=== PATIENT | female | born 1970 | race Caucasian/White ===

== ENCOUNTER → 2017-09-19 | Outpatient (REF) | payer OTHER | LOC: M LAB REF 12:14 | PROVIDERS: ATTEND Physician Assistant | DX: J02.9 Acute pharyngitis, unspecified (principal) ==

== ENCOUNTER 2017-12-16 06:35 | Day surgery (SDC) | payer OTHER ==
[2017-12-16] MEDS ORDERED: LR 1,000 ML IV ×2 (06:45→09:45)
[2017-12-16] MEDS ORDERED: PROPOFOL 200 MG/20 ML VIAL As Ordered ×3 (07:07→08:48)
[2017-12-16] MEDS ORDERED: LIDOCAINE 2% INJ 100 MG/5 ML SDV (FOR ANES.) As Ordered (07:07)
[2017-12-16] MEDS ORDERED: fentaNYL 250 MCG/5 ML INJECTION (J3010) As Ordered (07:07)
[2017-12-16] MEDS ORDERED: MIDAZOLAM INJ 2 MG/2 ML VIAL (J2250) As Ordered ×2 (07:08→07:26)
[2017-12-16] MEDS: BUPIVACAINE HCL 0.5% 30 ML VIAL As Ordered (07:35)
[2017-12-16] MEDS: LIDOCAINE 2% MDV 20 ML VIAL As Ordered (07:35)
[2017-12-16] MEDS ORDERED: ONDANSETRON 4MG/2ML VIAL (J2405) As Ordered (07:39)
[2017-12-16] MEDS ORDERED: dexameTHASONE 4 MG/ML 1ML VIAL (J1100) As Ordered (07:39)
[2017-12-16] MEDS ORDERED: KETOROLAC 60 MG/2 ML VIAL (J1885) As Ordered (07:39)
[2017-12-16] MEDS ORDERED: METOCLOPRAMIDE INJ 10MG/2ML VIAL (J2765) As Ordered (08:18)
[2017-12-16] MEDS: dexameTHASONE 4 MG/ML 1ML VIAL (J1100) As Ordered (08:26)
[2017-12-16] MEDS: BACITRACIN PWD 50,000 UNITS VIAL As Ordered (08:26)
[2017-12-16] MEDS: NEOSPORIN GU IRRIG 20 ML VIAL As Ordered (08:27)
[2017-12-16] MEDS ORDERED: ONDANSETRON 4MG/2ML VIAL (J2405) IV (09:45)
[2017-12-16] MEDS ORDERED: fentaNYL 100 MCG/2 ML INJECTION (J3010) IV (09:45)
[2017-12-16] MEDS ORDERED: PERCOCET 5MG/325MG TAB PO (09:45)
== END 2017-12-16 11:45 | disposition home or self-care (01) ==
LOC: M SDC 06:35
DX: M20.11 Hallux valgus (acquired), right foot (principal); M20.41 Other hammer toe(s) (acquired), right foot; M21.621 Bunionette of right foot; I10 Essential (primary) hypertension; J30.9 Allergic rhinitis, unspecified; M19.90 Unspecified osteoarthritis, unspecified site; Z91.048 Other nonmedicinal substance allergy status; Z91.040 Latex allergy status; Z79.899 Other long term (current) drug therapy
CPT/HCPCS: 28296

== ENCOUNTER → 2017-12-22 | Outpatient (REF) | payer OTHER ==
[2017-12-22 13:58] LABS: ALBUMIN 4.1 GM/DL (3.2-5.2); ALBUMIN/GLOBULIN RATIO 1.21 (1.00-1.93); ALKALINE PHOSPHATASE 88 U/L (45-117); ALT/SGPT 42 U/L (12-78); ANION GAP 7 MEQ/L (8-16); AST/SGOT 32 U/L (7-37); BILIRUBIN,TOTAL 0.4 MG/DL (0.2-1.0); BLOOD UREA NITROGEN 13 MG/DL (7-18); CALCIUM LEVEL 9.1 MG/DL (8.5-10.1); CARBON DIOXIDE LEVEL 28 MEQ/L (21-32); CHLORIDE LEVEL 105 MEQ/L (98-107); CREATININE FOR GFR 0.63 MG/DL (0.55-1.30); GLOMERULAR FILTRATION RATE > 60.0 (>58); GLUCOSE, FASTING 87 MG/DL (70-100); POTASSIUM SERUM 3.9 MEQ/L (3.5-5.1); RHEUMATOID FACTOR QUANT < 10.0 IU/ML (0-15.0); SODIUM LEVEL 140 MEQ/L (136-145); TOTAL PROTEIN 7.5 GM/DL (6.4-8.2)
[2017-12-22 14:05] LABS: BASO % 0.9 % (0.0-1.0); EOS # 0.1 10^3/uL (0.0-0.50); EOS % 2.9 % (0.0-3.0); HEMATOCRIT 42.5 % (36.0-47.0); HEMOGLOBIN 14.4 g/dl (12.0-16.0); IMMATURE GRANULOCYTE % 0.4 % (0-3.0); LYMPH # 0.9 10^3/uL (1.5-4.5); LYMPH % 20.7 % (24.0-44.0); MEAN CORPUSCULAR HEMOGLOBIN 31.2 pg (27.0-33.0); MEAN CORPUSCULAR HGB CONC 33.9 g/dl (32.0-36.5); MONO # 0.5 10^3/uL (0.0-0.8); MONO % 11.4 % (0.0-5.0); NEUTROPHILS # 2.9 10^3/uL (1.8-7.7); NEUTROPHILS % 63.7 % (36.0-66.0); PLATELET COUNT, AUTOMATED 256 10^3/uL (150-450); RED BLOOD COUNT 4.62 10^6/uL (4.00-5.40); RED CELL DISTRIBUTION WIDTH 12.1 % (11.5-14.5); WHITE BLOOD COUNT 4.5 10^3/uL (4.0-10.0)
[2017-12-22 15:16] LABS: ERYTHROCYTE SEDIMENTATION RATE 21 mm/hr (0-20)
[2017-12-23 14:13] LABS: ANTINUCLEAR ANTIBODIES DIRECT Negative (Negative)
[2017-12-27 10:33] LABS: ALBUMIN % 60.1 % (55.8-66.1); ALPHA-1-GLOBULIN % 3.9 % (2.9-4.9); BETA-1-GLOBULINS % 5.7 % (4.7-7.2)
[2017-12-27 10:34] LABS: ALBUMIN 4.51 GM/DL (3.29-5.55); ALPHA-1-GLOBULINS 0.29 GM/DL (0.17-0.41); ALPHA-2-GLOBULINS 0.75 GM/DL (0.42-0.99); BETA-1-GLOBULINS 0.43 GM/DL (0.28-0.60); BETA-2-GLOBULINS % 5.3 % (3.2-6.5); GAMMA GLOBULINS 1.13 GM/DL (0.65-1.58)
== END ==
LOC: M LABNEURO 09:51
DX: R51 Headache (principal)

== ENCOUNTER → 2018-05-12 | Outpatient (REF) | payer OTHER | LOC: M LAB REF 16:52 | DX: N76.0 Acute vaginitis (principal) ==

== ENCOUNTER → 2018-08-10 | Outpatient (REF) | payer OTHER | LOC: M LAB REF 14:06 | DX: M79.674 Pain in right toe(s) (principal); G62.9 Polyneuropathy, unspecified ==

== ENCOUNTER → 2018-10-02 | Outpatient (REF) | payer OTHER ==
[2018-10-02 19:25] LABS: VITAMIN B12 LEVEL 1424 PG/ML (247-911)
== END ==
LOC: M LAB REF 16:54
DX: D51.9 Vitamin B12 deficiency anemia, unspecified (principal)
CPT/HCPCS: 82607

== ENCOUNTER → 2019-05-10 | Outpatient (CLI) | payer OTHER ==
[~2019-05-10] MED LIST: HYDR12CA PO; POTA10TA67 PO
[2019-05-10 15:51] LABS: HEMOGLOBIN A1c 5.4 %
[2019-05-10 15:55] LABS: FOLATE 12.8 NG/ML; RHEUMATOID FACTOR QUANT < 10.0 IU/ML (<15.0); VITAMIN B12 LEVEL 819 PG/ML
[2019-05-15 09:59] LABS: DRVV SCREEN 40.4 SEC
[2019-05-16 14:07] LABS: ANCA-ATYPICAL <1:20 titer (Neg:<1:20); ANTI DS-DNA AB <1:10 titer (.); ANTINUCLEAR ANTIBODIES DIRECT Negative (Negative); CERULOPLASMIN 21.4 mg/dL (19.0-39.0); COPPER PLASMA 92 ug/dL (72-166); CYTOPLASMIC NEUTROP AB ANCA-C <1:20 titer (Neg:<1:20); LEAD BLOOD ADULT <1 ug/dL (0-4); Lyme Disease IgG/IgM Antibodie <0.91 ISR (0.00-0.90); Lyme Disease IgM Ab Quantitati <0.80 index (0.00-0.79); MERCURY LEVEL None Detected ug/L (0.0-14.9); PERINUCLEAR AB ANCA-P <1:20 titer (Neg:<1:20); SJOGREN'S ANTI SS-A <0.2 AI (0.0-0.9); SJOGREN'S ANTI SS-B <0.2 AI (0.0-0.9); VITAMIN B1 LEVEL WHOLE BLOOD 124.8 nmol/L (66.5-200.0); VITAMIN B6,PYRIDOXAL PHOSPHATE 17.6 ug/L (2.0-32.8); VITAMIN E(ALPHA TOCOPHEROL) 12.6 mg/L (7.0-25.1); VITAMIN E(GAMMA TOCOPHEROL) 1.2 mg/L (0.5-5.5)
== END ==
LOC: M WUC 14:09
PROVIDERS: ATTEND Psychiatry & Neurology Neurology
DX: G62.9 Polyneuropathy, unspecified (principal)

== ENCOUNTER → 2019-10-04 | Outpatient (REF) | payer OTHER | LOC: M LAB REF 14:22 | PROVIDERS: ATTEND Physician Assistant Medical | DX: D51.9 Vitamin B12 deficiency anemia, unspecified (principal) ==

== ENCOUNTER → 2020-08-28 | Outpatient (REF) | payer OTHER | LOC: M LABDRWAD 17:09 | PROVIDERS: ATTEND Psychiatry & Neurology Neurology | DX: R51.9 Headache, unspecified (principal) ==

== ENCOUNTER → 2020-10-02 | Outpatient (REF) | payer OTHER | LOC: M LAB REF 12:27 | PROVIDERS: ATTEND Nurse Practitioner Adult Health | DX: D51.9 Vitamin B12 deficiency anemia, unspecified (principal) ==

== ENCOUNTER → 2021-02-06 | Outpatient (REF) | payer OTHER ==
[2021-02-06 12:55] LABS: EOS # 0.2 10^3/uL (0.0-0.5); HEMATOCRIT 36.4 % (36.0-47.0); HEMOGLOBIN 11.7 g/dl (12.0-15.5); LYMPH % 24.5 % (24.0-44.0); MEAN CORPUSCULAR HEMOGLOBIN 30.5 pg (27.0-33.0); MEAN CORPUSCULAR HGB CONC 32.1 g/dl (32.0-36.5); MONO # 0.5 10^3/uL (0.0-0.8); MONO % 13.4 % (2.0-8.0); NEUTROPHILS # 2.3 10^3/uL (1.5-8.5); NEUTROPHILS % 56.8 % (36.0-66.0); PLATELET COUNT, AUTOMATED 220 10^3/uL (150-450); RED BLOOD COUNT 3.83 10^6/uL (4.00-5.40)
[2021-02-06 13:17] LABS: ERYTHROCYTE SEDIMENTATION RATE 25 mm/hr (0-30)
[2021-02-06 13:37] LABS: ALBUMIN 3.7 GM/DL (3.2-5.2); ALT/SGPT 32 U/L (12-78); BILIRUBIN,TOTAL 0.5 MG/DL (0.2-1.0); BLOOD UREA NITROGEN 22 MG/DL (7-18); CARBON DIOXIDE LEVEL 29 MEQ/L (21-32); CHLORIDE LEVEL 106 MEQ/L (98-107); CREATININE FOR GFR 0.62 MG/DL (0.55-1.30); GLOMERULAR FILTRATION RATE > 60.0 (>51); GLUCOSE, FASTING 80 MG/DL (70-100); POTASSIUM SERUM 3.8 MEQ/L (3.5-5.1); SODIUM LEVEL 140 MEQ/L (136-145)
== END ==
LOC: M LABDRWAD 12:18
PROVIDERS: ATTEND Psychiatry & Neurology Neurology
DX: R51.9 Headache, unspecified (principal)

== ENCOUNTER → 2021-12-07 | Outpatient (REF) | payer OTHER | LOC: M LAB REF 11:25 | PROVIDERS: ATTEND Nurse Practitioner Adult Health | DX: D51.9 Vitamin B12 deficiency anemia, unspecified (principal) ==

== ENCOUNTER → 2022-02-15 | Outpatient (CLI) | payer OTHER ==
[~2022-02-15] MED LIST changes: +COQ-50CA2 PO; +CVS2500C PO; +ESTR10TA; +FERR325T3 PO; +MAGN400C PO; +REST0.05 OU; +ROSU10TA6 PO; +VITA100T39 PO
[2022-02-17 14:10] LABS: HBV HBV DNA not detected IU/mL (.); HEPATITIS B CORE ANTIBODY IGG Negative (Negative); HEPATITIS BE ANTIBODY Negative (Negative); HEPATITIS BE ANTIGEN Negative (Negative)
== END ==
LOC: M PLALAB 10:28
PROVIDERS: ATTEND Internal Medicine Infectious Disease
DX: R76.8 Other specified abnormal immunological findings in serum (principal); Z78.9 Other specified health status

== ENCOUNTER → 2022-03-11 | Outpatient (CLI) | payer OTHER | LOC: M LABSMTC 09:16 | PROVIDERS: ATTEND Anesthesiology | DX: Z01.812 Encounter for preprocedural laboratory examination (principal); Z20.822 Contact with and (suspected) exposure to COVID-19 ==

== ENCOUNTER 2022-03-16 07:29 | Day surgery (SDC) | payer OTHER ==
[~2022-03-16] VITALS: Ht 162.6 cm; Wt 65.3 kg
[~2022-03-16 07:29] MED LIST changes: +NS 1,000 ML IV ONE
[2022-03-16] MEDS ORDERED: propofoL 200 MG/20 ML VIAL As Ordered ONE ×2 (08:43→09:13)
[2022-03-16 09:40] VITALS: BP 139/91
== END 2022-03-16 10:10 | disposition home or self-care (01) ==
LOC: M OPP 07:29
PROVIDERS: ATTEND Internal Medicine Gastroenterology
DX: Z12.11 Encounter for screening for malignant neoplasm of colon (principal); Z80.0 Family history of malignant neoplasm of digestive organs; K63.5 Polyp of colon; K57.30 Diverticulosis of large intestine without perforation or abscess without bleeding; K64.8 Other hemorrhoids; Z79.02 Long term (current) use of antithrombotics/antiplatelets; Z79.899 Other long term (current) drug therapy; Z91.040 Latex allergy status

== ENCOUNTER → 2022-04-21 | Outpatient (REF) | payer OTHER ==
[~2022-04-21] MED LIST changes: -NS 1,000 ML IV ONE
[2022-04-21 15:14] LABS: BASO % 0.7 % (0.0-1.0); EOS # 0.1 10^3/uL (0.0-0.5); EOS % 2.3 % (0.0-3.0); HEMATOCRIT 39.6 % (36.0-47.0); HEMOGLOBIN 13.6 g/dl (12.0-15.5); LYMPH # 1.2 10^3/uL (1.5-5.0); LYMPH % 28.2 % (24.0-44.0); MEAN CORPUSCULAR HGB CONC 34.3 g/dl (32.0-36.5); MEAN CORPUSCULAR VOLUME 93.2 fl (80.0-96.0); MONO # 0.4 10^3/uL (0.0-0.8); MONO % 10.1 % (2.0-8.0); NEUTROPHILS # 2.5 10^3/uL (1.5-8.5); NEUTROPHILS % 58.5 % (36.0-66.0); PLATELET COUNT, AUTOMATED 205 10^3/uL (150-450); RED BLOOD COUNT 4.25 10^6/uL (4.00-5.40); WHITE BLOOD COUNT 4.3 10^3/uL (4.0-10.0)
[2022-04-21 15:51] LABS: ALBUMIN 4.1 GM/DL (3.2-5.2); ALT/SGPT 33 U/L (12-78); BILIRUBIN,DIRECT 0.2 MG/DL (0.0-0.2); BILIRUBIN,TOTAL 0.4 MG/DL (0.2-1.0); IRON (FE) 82 UG/DL (50-170); PERCENT SATURATION 26.7 % (13.2-45.0); TOTAL IRON BINDING CAPACITY 307 UG/DL (250-450); TOTAL PROTEIN 7.4 GM/DL (6.4-8.2)
[2022-04-21 16:02] LABS: HEPATITIS B SURFACE ANTIBODY NEGATIVE (POSITIVE)
[2022-04-21 16:13] LABS: HEPATITIS B SURFACE ANTIGEN NEGATIVE (NEGATIVE)
[2022-04-21 16:42] LABS: HEPATITIS B CORE ANTIBODY IGM NEGATIVE (NEGATIVE)
[2022-04-23 14:08] LABS: HEPATITIS A IgG TOTAL Negative (Negative); HEPATITIS B CORE ANTIBODY IGG Negative (Negative); HEPATITIS BE ANTIBODY Negative (Negative); HEPATITIS BE ANTIGEN Negative (Negative)
== END ==
LOC: M LAB REF 14:38
PROVIDERS: ATTEND Internal Medicine Gastroenterology
DX: E61.1 Iron deficiency (principal)

== ENCOUNTER → 2022-06-25 | Outpatient (CLI) | payer OTHER | LOC: M WUC 08:47 | PROVIDERS: ATTEND Nurse Practitioner Adult Health | DX: M25.551 Pain in right hip (principal) ==

== ENCOUNTER → 2022-09-01 | Outpatient (CLI) | payer OTHER | LOC: M RAD 10:34 | PROVIDERS: ATTEND Nurse Practitioner Adult Health | DX: M25.551 Pain in right hip (principal) ==

== ENCOUNTER → 2023-06-10 | Outpatient (REF) | payer OTHER ==
[~2023-06-10] MED LIST changes: +CO Q50CA7 PO; -COQ-50CA2 PO
[2023-06-10 10:16] LABS: HEMATOCRIT 43.1 % (36.0-47.0)
[2023-06-10 10:41] LABS: PERCENT SATURATION 27.6 % (13.2-45.0)
[2023-06-10 10:43] LABS: FERRITIN 54.4 NG/ML (7.3-270.7)
== END ==
LOC: M LAB REF 09:43
PROVIDERS: ATTEND Nurse Practitioner Adult Health
DX: D51.9 Vitamin B12 deficiency anemia, unspecified (principal)

== ENCOUNTER → 2024-06-12 | Outpatient (REF) | payer OTHER ==
[~2024-06-12] MED LIST changes: -ROSU10TA6 PO; +ROSU10TA61 PO
[2024-06-12 13:59] LABS: HEMATOCRIT 40.5 % (36.0-47.0)
[2024-06-12 14:07] LABS: PERCENT SATURATION 16.5 % (13.2-45.0)
[2024-06-12 14:10] LABS: FERRITIN 20.1 NG/ML (7.3-270.7)
== END ==
LOC: M LAB REF 13:20
PROVIDERS: ATTEND Nurse Practitioner Adult Health
DX: D50.9 Iron deficiency anemia, unspecified (principal); D51.9 Vitamin B12 deficiency anemia, unspecified

== ENCOUNTER → 2024-12-17 | Outpatient (REF) | payer OTHER ==
[2024-12-21 17:31] LABS: FREE T3 3.6 PG/ML (2.3-4.2)
== END ==
LOC: M LAB REF 16:07
PROVIDERS: ATTEND Nurse Practitioner Adult Health
DX: E07.9 Disorder of thyroid, unspecified (principal)